=== PATIENT | female | born 1970 | race Caucasian/White ===

== ENCOUNTER 2017-08-14 10:41 | Emergency (ER) | payer OTHER ==
[2017-08-14] MEDS ORDERED: Ondansetron ODT TAB* 4 MG PO ONE (13:03)
[2017-08-14] MEDS ORDERED: Ketorolac INJ* 60 MG/2 ML VIAL IM ONE (13:03)
--- NOTE | 2017-08-14 13:05 | ED ---
Throat Pain/Nasal Congestion - HPI Summary HPI Summary: 47 female presents to ED with complaints of throat pain, cough and nasal congestion that began 5 days ago and she feels it is worsening. Was seen by UC on Monday and given amoxicillin. States she has not had much improvement. States throat is very painful and glands feel swollen. Unknown if ever had mono before. States she feels feverish however no known fever/temp. Admits to cough being productive, with green/yellow mucus. No other complaints at this time. Denies vomiting, headache and myalgias. Has not used any other medications. - History of Current Complaint Chief Complaint: EDThroatPain Time Seen by Provider: 08/14/17 10:56 Hx Obtained From: Patient Onset/Duration: Sudden Onset, Lasting Days, Still Present, Worse Since Severity: Moderate Associated Signs And Symptoms: Positive: Dysphagia, Sinus Discomfort, Nasal Discharge Cough: Productive - Epiglottits Risk Factors Epiglottis Risk Factors: Negative - Allergies/Home Medications Allergies/Adverse Reactions: Allergies Allergy/AdvReac Type Severity Reaction Status Date / Time No Known Allergies Allergy Verified 01/23/16 20:49 PMH/Surg Hx/FS Hx/Imm Hx Endocrine/Hematology History: Denies: Hx Diabetes Cardiovascular History: Denies: Hx Hypertension - Surgical History Surgery Procedure, Year, and Place: ovarian cyst removal - Immunization History Immunizations Up to Date: Yes Infectious Disease History: No Infectious Disease History: Denies: History Other Infectious Disease, Traveled Outside the [place] in Last 30 Days - Family History Known Family History: Positive: None - Social History Alcohol Use: None Substance Use Type: Reports: None Hx Tobacco Use: Yes Smoking Status (MU): Former Smoker Amount Used/How Often: 1 PPD Review of Systems Constitutional: Negative Positive: Sore Throat, Nasal Discharge Positive: Cough Positive: Nausea All Other Systems Reviewed And Are Negative: Yes Physical Exam Triage Information Reviewed: Yes Vital Signs On Initial Exam: Initial Vitals Temp Pulse Resp BP Pulse Ox 98.3 F 86 20 133/84 96 08/14/17 10:51 08/14/17 10:51 08/14/17 10:51 08/14/17 10:51 08/14/17 10:51 Vital Signs Reviewed: Yes Appearance: Positive: Well-Appearing, No Pain Distress, Well-Nourished Skin: Positive: Warm, Skin Color Reflects Adequate Perfusion, Dry. Negative: Cold, Numb, Cyanosis @, Pale, Erythema @ Head/Face: Positive: Normal Head/Face Inspection Eyes: Positive: Conjunctiva Clear ENT: Positive: Hearing grossly normal, Pharyngeal erythema, Nasal congestion, Nasal drainage, TMs normal, Tonsillar swelling. Negative: Tonsillar exudate, Trismus, Muffled voice, Sinus tenderness Dental: Negative: Percussion Tenderness @, Cervical Lymphadenopathy Neck: Positive: Supple, Nontender Respiratory/Lung Sounds: Positive: Clear to Auscultation, Breath Sounds Present. Negative: Rales, Rhonchi, Wheezes Cardiovascular: Positive: Normal, RRR, Pulses are Symmetrical in both Upper and Lower Extremities. Negative: Murmur, Rub Abdomen Description: Positive: Soft Bowel Sounds: Positive: Present Musculoskeletal: Positive: Normal, Strength/ROM Intact Neurological: Positive: Normal, Sensory/Motor Intact, Alert, Oriented to Person Place, Time - Elizabeth Coma Scale Coma Scale Total: 15 Diagnostics - Vital Signs Vital Signs Temp Pulse Resp BP Pulse Ox 08/14/17 10:51 98.3 F 86 20 133/84 96 - Laboratory Lab Results: Lab Results 08/14/17 Range/Units 11:41 Group A Strep Rapid Negative (Negative) Lab Statement: Any lab studies that have been ordered have been reviewed, and results considered in the medical decision making process. EENT Course/Dx - Course Course Of Treatment: rapid strep obtained and negative. appears patient is suffering from a viral illness. encouraged use of mucinex, chloraseptic spray, flonase and increase fluid intake and rest. Extra pillow at bedtime, humidifier/ hot showers. Given toradol while in ED for pain. Will give tylenol with codeine for bedtime cough/pain. Ibuprofen during day as needed. Aware of worsening signs and symptoms to watch out for. Follow up with PCP. No concern for any other emergent etiology or concern for other etiology at this time. - Differential Diagnoses Differential Diagnoses: Laryngitis, Pharyngitis, URI/Bronchitis - Diagnoses Provider Diagnoses: Upper respiratory infection, Pharyngitis Discharge - Discharge Plan Condition: Stable Disposition: HOME Prescriptions: Acetaminop/Codeine 30 MG TAB* [Tylenol/Codeine 30 MG TAB*] 1 tab PO Q6H PRN #10 tab MDD 2 PRN Reason: Pain Fluticasone NASAL * [Flonase *] 2 spray BOTH NARES DAILY #1 spray Patient Education Materials: Pharyngitis (ED), Upper Respiratory Infection (ED) Forms: *Work Release Referrals: Evans Joshi MD [Primary Care Provider] - Additional Instructions: Use prescribed flonase as directed to help with nasal congestion. Hot showers, humidifier, extra pillow at bedtime. Tylenol with codeine at bedtime. Do not drive while taking this. Refrain from ibuprofen/NSAIDs for next 24 hours. Take mucinex-d and use chloraseptic spray over the counter. Gargle with salt water. Eat soft foods. Drink plenty of fluids, get plenty of rest. Wash hands frequently. Continue previously prescribed medication. Follow up with PCP. Give symptoms 7 days for improvement. Any new or worsening symptoms please seek medical attention promptly.
[2017-08-14 14:00] VITALS: BP 148/96
== END 2017-08-14 13:58 | disposition home or self-care (01) ==
LOC: ED 10:41
DX: J06.9 Acute upper respiratory infection, unspecified (principal); J02.9 Acute pharyngitis, unspecified
CPT/HCPCS: 87651; 96372; 99282; A9270-GY; J1885